=== PATIENT | male | born 1950 | race Caucasian/White ===

== ENCOUNTER → 2016-12-19 | Outpatient (CLI) | payer OTHER ==
[~2016-12-19] MED LIST: AMLO10TA2 PO; ATEN50TA PO; INSU100V8 SQ; LIRA0.6P SQ; LISI10TA2 PO; METF10002 PO; SIMV20TA3 PO
[2016-12-19 15:29] LABS: BASO # 0.1 x10^3/uL (0.0-0.2); BASO % 1 % (0-3); EOS % 2 % (0-3); HEMATOCRIT 46.4 % (39.0-53.0); HEMOGLOBIN 15.1 g/dL (13.0-17.5); LYMPH # 1.9 x10^3/uL (1.0-4.8); LYMPH % 23 % (24-48); MEAN CORPUSCULAR HEMOGLOBIN 29 pg (25-35); MEAN CORPUSCULAR HGB CONC 33 g/dL (31-37); MEAN CORPUSCULAR VOLUME 87 fL (79-100); MONO % 8 % (0-9); NEUT % 66 % (31-73); PLATELET COUNT 191 x10^3/uL (140-400); RED BLOOD COUNT 5.31 x10^6/uL (4.30-5.70); WHITE BLOOD COUNT 8.2 x10^3/uL (4.0-11.0)
[2016-12-19 15:37] LABS: ALBUMIN 3.8 g/dL (3.4-5.0); ALBUMIN/GLOBULIN RATIO 0.9 (1.0-1.7); CALCIUM 9.6 mg/dL (8.5-10.1); CREATININE 1.1 mg/dL (0.7-1.3); GFR 67.4; POTASSIUM 3.9 mmol/L (3.5-5.1); TOTAL BILIRUBIN 0.3 mg/dL (0.2-1.0); TOTAL PROTEIN 8.2 g/dL (6.4-8.2)
== END | disposition home or self-care (01) ==
LOC: LAB 14:55
PROVIDERS: ATTEND Physician Assistant Medical
DX: I12.9 Hypertensive chronic kidney disease with stage 1 through stage 4 chronic kidney disease, or unspecified chronic kidney disease (principal); E11.22 Type 2 diabetes mellitus with diabetic chronic kidney disease; N18.3 Chronic kidney disease, stage 3 (moderate); N30.01 Acute cystitis with hematuria
CPT/HCPCS: 36415; 80053; 83036; 85027; 87086; 87186

== ENCOUNTER → 2017-02-24 | Outpatient (CLI) | payer OTHER ==
[~2017-02-24] MED LIST changes: +METF-620 PO; -METF10002 PO
== END | disposition home or self-care (01) ==
LOC: LAB 13:04
PROVIDERS: ATTEND Physician Assistant Medical
DX: N30.01 Acute cystitis with hematuria (principal)
CPT/HCPCS: 87086

== ENCOUNTER → 2017-08-11 | Outpatient (CLI) | payer OTHER ==
--- NOTE | 2017-08-11 13:15 | RAD ---
Indication cough. Frontal and lateral views of the chest were obtained and are compared to an examination almost 12 years earlier. Postoperative changes are noted. Heart size is slightly enlarged but unchanged. There is no gross congestive heart failure. No consolidated pneumonia is seen. IMPRESSION: No acute or focal process is seen in the chest
== END | disposition home or self-care (01) ==
LOC: RAD 12:49
PROVIDERS: ATTEND Physician Assistant Medical
DX: R05 Cough (principal)
CPT/HCPCS: 71020

== ENCOUNTER 2017-11-25 10:09 | Day surgery (SDC) | payer OTHER ==
[~2017-11-25 10:09] MED LIST changes: -AMLO10TA2 PO; -ATEN50TA PO; +BALANCED SALT IRRIG OPHTH SOLN 15 ML BOTTLE.; +HYDROmorphone 2 MG/ML VIAL IV; -INSU100V8 SQ; +LIDOCAINE 1% PF 2 ML VIAL. ID; +LIDOCAINE 2% JELLY 6ML IN APPLICATOR.; +LIDOCAINE 2% JELLY 6ML IN APPLICATOR. MM; -LIRA0.6P SQ; -LISI10TA2 PO; -METF-620 PO; +MORPHINE SULFATE 2 MG/ML DISP.SYRIN. IV; +ONDANSETRON PF 4 MG/2 ML VIAL. IV; +PROCHLORPERAZINE 10 MG/2 ML VIAL. IV; -SIMV20TA3 PO; +fentaNYL PF VIAL 100 MCG/2 ML VIAL IV
[2017-11-25] MEDS: IV RINGERS,LACTATED 1000ML 1,000 ML IV ×2 (11:03)
[2017-11-25] MEDS: PROPARACAINE 0.5% OPHTH SOLUTION 15ML BOTTLE. OS ×2 (11:36)
[2017-11-25] MEDS: CYCLOPENTOLATE 1% OPTH SOLUTION 2ML BOTTLE. OS ×6 (11:37→11:47)
[2017-11-25] MEDS: PHENYLEPHRINE 10% OPHTH SOLUTION 5ML BOTTLE. OS ×6 (11:37→11:47)
[2017-11-25] MEDS: CIPROFLOXACIN 0.3% OPHTH SOLUTION 5ML BOTTLE. OS ×2 (11:48)
[2017-11-25] MEDS ORDERED: MIDAZOLAM HCL/PF 2 MG/2 ML VIAL. ×2 (12:14)
[2017-11-25] MEDS: CHONDROIT-SOD-HYALURONATE KIT. ×2 (12:59)
[2017-11-25] MEDS: LIDOCAINE 1% PF 2 ML VIAL. ×2 (13:00)
[2017-11-25] MEDS: NEO/POLYMYX/DEXAMETH OPHTH OINTMENT 3.5GM TUBE. ×2 (13:01)
== END 2017-11-25 13:26 | disposition home or self-care (01) ==
LOC: SURG 10:09
DX: E11.36 Type 2 diabetes mellitus with diabetic cataract (principal); E11.42 Type 2 diabetes mellitus with diabetic polyneuropathy; I10 Essential (primary) hypertension; I25.10 Atherosclerotic heart disease of native coronary artery without angina pectoris; Z98.890 Other specified postprocedural states; Z86.69 Personal history of other diseases of the nervous system and sense organs
CPT/HCPCS: 66984; C1780; J0171; J0690; J1580; J2250

== ENCOUNTER 2017-12-02 10:10 | Day surgery (SDC) | payer OTHER ==
[2017-12-02] MEDS: CYCLOPENTOLATE 1% OPTH SOLUTION 2ML BOTTLE. OD ×6 (06:06→11:05)
[~2017-12-02 10:10] MED LIST changes: +CHONDROITIN-SOD-HYALURONATE 0.5 ML DISP.SYRIN.; -HYDROmorphone 2 MG/ML VIAL IV; -LIDOCAINE 1% PF 2 ML VIAL. ID; -LIDOCAINE 2% JELLY 6ML IN APPLICATOR.; -LIDOCAINE 2% JELLY 6ML IN APPLICATOR. MM; +NEO/POLYMYX/DEXAMETH OPHTH OINTMENT 3.5GM TUBE.
[2017-12-02] MEDS: IV RINGERS,LACTATED 1000ML 1,000 ML IV ×2 (10:54)
[2017-12-02] MEDS: PROPARACAINE 0.5% OPHTH SOLUTION 15ML BOTTLE. OD ×2 (11:00)
[2017-12-02] MEDS: PHENYLEPHRINE 10% OPHTH SOLUTION 5ML BOTTLE. OD ×6 (11:00→11:10)
[2017-12-02 11:06] LABS: POC GLUCOSE 294 mg/dL (70-99)
[2017-12-02] MEDS ORDERED: INSULIN ASPART 100 UNIT/ML 10ML VIAL. SQ ×4 (11:06→11:45)
[2017-12-02] MEDS: CIPROFLOXACIN 0.3% OPHTH SOLUTION 5ML BOTTLE. OD ×2 (11:11)
[2017-12-02] MEDS: LIDOCAINE 2% JELLY 6ML IN APPLICATOR. MM ×2 (11:42→12:01)
[2017-12-02 11:50] LABS: POC GLUCOSE 254 mg/dL (70-99)
[2017-12-02] MEDS ORDERED: MIDAZOLAM HCL/PF 2 MG/2 ML VIAL. ×2 (12:06)
[2017-12-02] MEDS: CHONDROIT-SOD-HYALURONATE KIT. ×2 (12:27)
[2017-12-02] MEDS: LIDOCAINE 1% PF 2 ML VIAL. ID ×2 (12:27)
[2017-12-02] MEDS: LIDOCAINE 2% JELLY 6ML IN APPLICATOR. (12:27)
[2017-12-02 13:22] LABS: POC GLUCOSE 247 mg/dL (70-99)
== END 2017-12-02 13:31 | disposition home or self-care (01) ==
LOC: SURG 10:10
DX: E11.36 Type 2 diabetes mellitus with diabetic cataract (principal); E78.00 Pure hypercholesterolemia, unspecified; I25.10 Atherosclerotic heart disease of native coronary artery without angina pectoris; Z91.041 Radiographic dye allergy status; Z98.890 Other specified postprocedural states; Z86.69 Personal history of other diseases of the nervous system and sense organs
CPT/HCPCS: 66984; 82962; C1780; J0171; J0690; J1580; J1815; J2250

== ENCOUNTER → 2017-12-10 | Outpatient (CLI) | payer OTHER ==
[2017-12-10 12:11] LABS: ADD MAN DIFF? NO
[2017-12-10 12:19] LABS: BASO % 0 % (0-3); EOS # 0.2 x10^3/uL (0.0-0.7); EOS % 2 % (0-3); HEMATOCRIT 47.8 % (39.0-53.0); HEMOGLOBIN 15.7 g/dL (13.0-17.5); LYMPH # 2.3 x10^3/uL (1.0-4.8); LYMPH % 23 % (24-48); MEAN CORPUSCULAR HEMOGLOBIN 28 pg (25-35); MEAN CORPUSCULAR HGB CONC 33 g/dL (31-37); MEAN CORPUSCULAR VOLUME 87 fL (79-100); MONO # 0.8 x10^3/uL (0.0-1.1); MONO % 8 % (0-9); NEUT # 6.7 x10^3uL (1.8-7.7); NEUT % 67 % (31-73); PLATELET COUNT 200 x10^3/uL (140-400); RED BLOOD COUNT 5.52 x10^6/uL (4.30-5.70); RED CELL DISTRIBUTION WIDTH 14.1 % (11.5-14.5)
[2017-12-10 12:32] LABS: ALBUMIN 3.6 g/dL (3.4-5.0); ALBUMIN/GLOBULIN RATIO 0.8 (1.0-1.7); ALK PHOS 70 U/L (46-116); ALT (SGPT) 30 U/L (16-63); ANION GAP 9 (6-14); AST (SGOT) 17 U/L (15-37); BLOOD UREA NITROGEN 24 mg/dL (8-26); BUN/CREATININE RATIO 22 (6-20); CALCIUM 9.4 mg/dL (8.5-10.1); CARBON DIOXIDE 31 mmol/L (21-32); CHLORIDE 100 mmol/L (98-107); CHOLESTEROL 119 mg/dL (0-200); CREATININE 1.1 mg/dL (0.7-1.3); GFR 67.2; GLUCOSE 174 mg/dL (70-99); HDLC 39 mg/dL (40-60); LDLC 57 mg/dL (0-100); NON-HDL CHOLESTEROL 80 mg/dL (0-129); POTASSIUM 3.9 mmol/L (3.5-5.1); SODIUM 140 mmol/L (136-145); TOTAL BILIRUBIN 0.5 mg/dL (0.2-1.0); TOTAL PROTEIN 8.1 g/dL (6.4-8.2); TRIGLYCERIDES 116 mg/dL (0-150); VLDLC 23 mg/dL (0-40)
[2017-12-10 12:33] LABS: CHOLESTEROL/HDL RATIO 3.1
== END | disposition home or self-care (01) ==
LOC: LAB 11:55
DX: I12.9 Hypertensive chronic kidney disease with stage 1 through stage 4 chronic kidney disease, or unspecified chronic kidney disease (principal); E11.22 Type 2 diabetes mellitus with diabetic chronic kidney disease; N18.3 Chronic kidney disease, stage 3 (moderate)
CPT/HCPCS: 36415; 80053; 80061; 85025

== ENCOUNTER → 2018-03-23 | Outpatient (CLI) | payer OTHER, MEDICARE | END | disposition home or self-care (01) | LOC: MRI 08:30 | DX: M48.02 Spinal stenosis, cervical region (principal); M48.07 Spinal stenosis, lumbosacral region; M51.36 Other intervertebral disc degeneration, lumbar region | CPT/HCPCS: 72141; 72148 ==

== ENCOUNTER → 2018-12-31 | Outpatient (CLI) | payer OTHER, MEDICARE ==
[2018-02-01 15:00] VITALS: BP 130/65
[~2018-12-31] MED LIST changes: +ACET500T68 PO; +AMLO10TA8 PO; +AMOX1TAB61 PO; +ASPI-482 PO; +ATEN50TA PO; +ATOR40TA59 PO; -BALANCED SALT IRRIG OPHTH SOLN 15 ML BOTTLE.; +BENZ200C47 PO; -CHONDROITIN-SOD-HYALURONATE 0.5 ML DISP.SYRIN.; +GLIM4TAB2 PO; +INSU100I32 SQ; +INSU100V8 SQ; +KETO5DRO24 OS; +LIRA0.6P SQ; +LIRA0.6P2 SQ; +LISI-334 PO; +LISI10TA2 PO; +LISI1TAB7 PO; +METF10007 PO; -MORPHINE SULFATE 2 MG/ML DISP.SYRIN. IV; +MULT1TAB52 PO; -NEO/POLYMYX/DEXAMETH OPHTH OINTMENT 3.5GM TUBE.; +OFLO5DRO7 OS; -ONDANSETRON PF 4 MG/2 ML VIAL. IV; +OSEL75CA PO; +PRED-220 PO; -PROCHLORPERAZINE 10 MG/2 ML VIAL. IV; +PROP15DR EACHEYE; +SIMV20TA3 PO; +SPIR25TA5 PO; -fentaNYL PF VIAL 100 MCG/2 ML VIAL IV
[2018-12-31 11:49] LABS: BASO # 0.1 x10^3/uL (0.0-0.2); BASO % 1 % (0-3); EOS # 0.1 x10^3/uL (0.0-0.7); EOS % 1 % (0-3); HEMATOCRIT 46.6 % (39.0-53.0); HEMOGLOBIN 15.6 g/dL (13.0-17.5); LYMPH # 1.6 x10^3/uL (1.0-4.8); LYMPH % 16 % (24-48); MEAN CORPUSCULAR HEMOGLOBIN 29 pg (25-35); MEAN CORPUSCULAR HGB CONC 33 g/dL (31-37); MEAN CORPUSCULAR VOLUME 88 fL (79-100); MONO # 0.7 x10^3/uL (0.0-1.1); MONO % 7 % (0-9); NEUT # 7.3 x10^3uL (1.8-7.7); NEUT % 75 % (31-73); PLATELET COUNT 221 x10^3/uL (140-400); RED BLOOD COUNT 5.29 x10^6/uL (4.30-5.70); RED CELL DISTRIBUTION WIDTH 14.2 % (11.5-14.5); WHITE BLOOD COUNT 9.8 x10^3/uL (4.0-11.0)
[2018-12-31 12:16] LABS: ALBUMIN 3.6 g/dL (3.4-5.0); ALBUMIN/GLOBULIN RATIO 0.8 (1.0-1.7); CALCIUM 9.1 mg/dL (8.5-10.1); CREATININE 1.2 mg/dL (0.7-1.3); GFR 60.6; MAGNESIUM 1.7 mg/dL (1.8-2.4); POTASSIUM 3.9 mmol/L (3.5-5.1); TOTAL BILIRUBIN 0.5 mg/dL (0.2-1.0); TOTAL PROTEIN 8.1 g/dL (6.4-8.2)
[2019-01-01 00:09] LABS: HEMOGLOBIN A1C 12.8 % (4.8-5.6)
== END | disposition home or self-care (01) ==
LOC: LAB 11:26
PROVIDERS: ATTEND Physician Assistant Medical
DX: I12.9 Hypertensive chronic kidney disease with stage 1 through stage 4 chronic kidney disease, or unspecified chronic kidney disease (principal); E11.22 Type 2 diabetes mellitus with diabetic chronic kidney disease; N18.3 Chronic kidney disease, stage 3 (moderate)
CPT/HCPCS: 36415; 80053; 80061; 83036; 83735; 85025